=== PATIENT | female | born 1935 | race African-American/Black ===

== ENCOUNTER 2017-07-04 13:53 | Emergency (ER) | payer OTHER ==
[2017-07-04] MEDS ORDERED: SODIUM CHLORIDE 0.9% 1000 ML INFUS.BAG IV ONE (14:51)
--- NOTE | 2017-07-04 14:53 | PDOC ---
History of Present Illness <Gilberto Valle - Last Filed: 07/04/17 17:51> - General History Source: Patient Exam Limitations: No Limitations - History of Present Illness Initial Comments: 07/04/17 15:47 The patient is an 82 year old female with past medical history of SBO, diabetes , hypertension, TIA, GERD and dementia who presents to the ED s/p syncope today. As per daughter, the patient was sitting in her chair when she stated she felt unwell and proceeded to faint. Her daughter caught her before she could hit the floor. After waking up, the patient complains of dizziness and nausea. She proceeded to have a finger stick which was noted to be 299. In the ED, she additionally complains of 6/10 epigastric soreness that she reports taking mylanta for. She denies any fevers or chills. <Va Garcia - Last Filed: 07/04/17 17:55> - General Stated Complaint: high blood glucose Time Seen by Provider: 07/04/17 14:49 Past History - Past Medical History Anemia: No Asthma: No Cancer: No Cardiac Disorders: No CVA: No COPD: No CHF: No Dementia: No Diabetes: Yes GI Disorders: Yes Disorders: No HTN: Yes Hypercholesterolemia: No Liver Disease: No Seizures: No Thyroid Disease: No - Surgical History Abdominal Surgery: Yes - Immunization History Immunization Up to Date: Yes - Suicide/Smoking/Psychosocial Hx Smoking Status: No Smoking History: Never smoked Have you smoked in the past 12 months: No Number of Cigarettes Smoked Daily: 0 Hx Alcohol Use: No Drug/Substance Use Hx: No Substance Use Type: None Hx Substance Use Treatment: No <Gilberto Valle - Last Filed: 07/04/17 17:51> <Va Garcia - Last Filed: 07/04/17 17:55> - Past Medical History Allergies/Adverse Reactions: Allergies Allergy/AdvReac Type Severity Reaction Status Date / Time No Known Allergies Allergy Verified 07/04/17 14:54 Home Medications: Ambulatory Orders Acetaminophen [Tylenol .Extra-Strength -] 500 mg PO Q4H 10/24/13 Amlodipine Besylate [Norvasc -] 10 mg PO DAILY 10/24/13 Aspirin/Dipyridamole [Aggrenox -] 1 combo PO BID 10/24/13 Atorvastatin Ca [Lipitor] 10 mg PO HS 10/24/13 Esomeprazole Mag Trihydrate [Nexium] 40 mg PO DAILY 10/24/13 Glipizide [Glipizide Xl] 10 mg PO DAILY 10/24/13 Hydrochlorothiazide [Hctz -] 25 mg PO DAILY 10/24/13 Lipase/Protease/Amylase [Marcial Kitchen 24,000 Units Capsule] 1 each PO DAILY Lisinopril [Prinivil] 20 mg PO DAILY 10/24/13 Metoclopramide HCl 5 mg PO DAILY 10/24/13 Metoprolol Succinate 100 mg PO DAILY 10/24/13 Potassium Chloride 20 meq PO DAILY 10/24/13 Sitagliptin Phosphate [Januvia] 100 mg PO DAILY 10/24/13 Lactulose (Oral Use) [Cephulac -] 20 gm PO TID #1 bottle 10/27/13 Sennosides/Docusate Sodium [Docusate Sodium-Sennosides Tab] 1 each PO BID #60 tablet 10/27/13 Review of Systems - Review of Systems Able to Perform ROS?: Yes Comments:: 07/04/17 15:47 GENERAL/CONSTITUTIONAL: No fever or chills. No weakness. HEAD, EYES, EARS, NOSE AND THROAT: No change in vision. No ear pain or discharge. No sore throat. CARDIOVASCULAR: No chest pain or shortness of breath. RESPIRATORY: No cough, wheezing, or hemoptysis. GASTROINTESTINAL: Present: nausea No vomiting, diarrhea or constipation. GENITOURINARY: No dysuria, frequency, or change in urination. MUSCULOSKELETAL: No joint or muscle swelling or pain. No neck or back pain. SKIN: No rash NEUROLOGIC: Present: dizziness, syncope No headache, vertigo, or change in strength/sensation. ENDOCRINE: No increased thirst. No abnormal weight change. HEMATOLOGIC/LYMPHATIC: No anemia, easy bleeding, or history of blood clots. ALLERGIC/IMMUNOLOGIC: No hives or skin allergy. All Other Systems: Reviewed and Negative <Va Garcia - Last Filed: 07/04/17 17:55> *Physical Exam - Vital Signs Last Vital Signs Temp Pulse Resp BP Pulse Ox 72 20 114/62 95 07/04/17 14:49 07/04/17 14:49 07/04/17 14:49 07/04/17 14:49 - Physical Exam Comments: 07/04/17 15:49 GENERAL: Awake, alert, and fully oriented, in no acute distress HEAD: No signs of trauma EYES: PERRLA, EOMI, sclera anicteric, conjunctiva clear ENT: Auricles normal inspection, hearing grossly normal, nares patent, oropharynx clear without exudates. Moist mucosa NECK: Normal ROM, supple, no lymphadenopathy, JVD, or masses LUNGS: Breath sounds equal, clear to auscultation bilaterally. No wheezes, and no crackles HEART: Regular rate and rhythm, normal S1 and S2, no murmurs, rubs or gallops ABDOMEN: Soft, nontender, normoactive bowel sounds. No guarding, no rebound. No masses EXTREMITIES: Normal range of motion, no edema. No clubbing or cyanosis. No cords, erythema, or tenderness NEUROLOGICAL: Cranial nerves II through XII grossly intact. Normal speech, normal gait SKIN: Warm, Dry, normal turgor, no rashes or lesions noted. <Va Garcia - Last Filed: 07/04/17 17:55> Heart Score/ECG Review - ECG Intrepretation Comment:: 07/04/17 16:01 ECG obtained at 15:49 Normal sinus at 73 bpm Cannot rule out anterior infarct <Va Garcia - Last Filed: 07/04/17 17:55> ED Treatment Course - RADIOLOGY Radiology Studies Ordered: Category Date Time Status CHEST X-RAY PORTABLE* [RAD] Stat Radiology 07/04/17 14:51 Ordered <Gilberto Valle - Last Filed: 07/04/17 17:51> - LABORATORY CBC & Chemistry Diagram: 07/04/17 17:45 07/04/17 17:45 - RADIOLOGY Radiograph Interpretation: 07/04/17 16:18 Chest X-ray as reviewed by Dr. Zuniga reports no significant interval change and some cardiomegaly. 07/04/17 17:[address] as reviewed by Dr. Domínguez reports no acute intracranial hemmorhage, mass effect, or hydrocephalus. No compelling evidence of acute transcortical infarction at this time. Generalized age related volume loss and moderate microvascular ischemic changes <Va Garcia - Last Filed: 07/04/17 17:55> *DC/Admit/Observation/Transfer <Gilberto Valle - Last Filed: 07/04/17 17:51> - Attestations Scribe Attestion: 07/04/17 15:49 Documentation prepared by Va Garcia, acting as medical equipment repair technician for Gilberto Valle DO. <Va Garcia - Last Filed: 07/04/17 17:55> Diagnosis at time of Disposition: Vasovagal syncope, Epigastric pain - Patient Instructions Additional Instructions: I, Dr. Gilberto Valle, attest that this document has been prepared under my direction and personally reviewed by me in its entirety. I further attest, that it accurately reflects all work, treatment, procedures and medical decision -making performed by me.
[2017-07-04 15:01] VITALS: BP 114/62; PULSE 72; BMI 31.9
[2017-07-04] MEDS ORDERED: ONDANSETRON 4 MG/2 ML VIAL IVPUSH ONE (15:37)
[2017-07-04] MEDS ORDERED: ONDANSETRON 4 MG/2 ML VIAL ONE (16:49)
[2017-07-04 17:55] LABS: BASO # 0.1 #; BASO % 1.3 % (0-2.0); EOS # 0.2 #; EOS % 2.3 % (0-4.5); LYMPH # 3.6; MCH 30.6 pg (25.7-33.7); MCHC 32.4 g/dl (32.0-36.0); MEAN CELL VOLUME 94.5 fl (80-96); MONO # 1.2 #; NEUT # 4.5 #; NEUT % 46.6 % (42.8-82.8); PLATELET COUNT 236 K/MM3 (134-434); RDW 15.6 % (11.6-15.6); WHITE BLOOD COUNT 9.6 K/mm3 (4.0-10.0)
[2017-07-04 18:01] LABS: VENOUS PH 7.33 (7.32-7.42)
[2017-07-04 18:02] LABS: VENOUS BLOOD GAS HCO3 28.3 meq/L (19-25)
[2017-07-04 18:24] LABS: INR 1.08 (0.82-1.09); PROTHROMBIN TIME (PATIENT) 12.2 SEC (9.98-11.88)
[2017-07-04 18:27] LABS: ALBUMIN 3.7 g/dl (3.4-5.0); ANION GAP 10 (8-16); CALCIUM 9.5 mg/dL (8.5-10.1); CO2 28 mmol/L (21-32); GLUCOSE,RANDOM 145 mg/dL (74-106); SGOT/AST 15 U/L (15-37)
[2017-07-04 18:33] LABS: ALK PHOS 90 U/L (45-117); BILIRUBIN,TOTAL 0.4 mg/dL (0.2-1.0); CPK 56 IU/L (26-192); SGPT/ALT 19 U/L (12-78); TOT PROT 8.1 g/dl (6.4-8.2); TROPONIN I < 0.02 ng/ml (0.00-0.05)
--- NOTE | 2017-07-04 22:20 | PDOC ---
*Physical Exam - Vital Signs Last Vital Signs Temp Pulse Resp BP Pulse Ox 72 20 114/62 95 07/04/17 14:49 07/04/17 14:49 07/04/17 14:49 07/04/17 14:49 ED Treatment Course - LABORATORY CBC & Chemistry Diagram: 07/04/17 17:45 07/04/17 17:45 - ADDITIONAL ORDERS Additional order review: Laboratory Results 07/04/17 07/04/17 07/04/17 17:45 17:45 17:45 PT with INR INR VBG pH 7.33 POC VBG pCO2 55.0 H POC VBG pO2 28.6 Mixed VBG HCO3 28.3 H Sodium 140 Potassium 3.9 Chloride 102 Carbon Dioxide 28 Anion Gap 10 BUN 13 D Creatinine 1.0 D Creat Clearance w eGFR 52.95 Random Glucose 145 H Lactic Acid 1.7 Calcium 9.5 Total Bilirubin 0.4 D AST 15 D ALT 19 Alkaline Phosphatase 90 D Creatine Kinase 56 Troponin I < 0.02 B-Natriuretic Peptide 108.19 Total Protein 8.1 D Albumin 3.7 Lipase 76 07/04/17 17:45 PT with INR 12.20 H INR 1.08 VBG pH POC VBG pCO2 POC VBG pO2 Mixed VBG HCO3 Sodium Potassium Chloride Carbon Dioxide Anion Gap BUN Creatinine Creat Clearance w eGFR Random Glucose Lactic Acid Calcium Total Bilirubin AST ALT Alkaline Phosphatase Creatine Kinase Troponin I B-Natriuretic Peptide Total Protein Albumin Lipase 07/04/17 17:45 RBC 4.42 D MCV 94.5 MCHC 32.4 RDW 15.6 MPV 10.0 Neutrophils % 46.6 Lymphocytes % 37.3 D Monocytes % 12.5 H Eosinophils % 2.3 Basophils % 1.3 - Medications Given in the ED: ED Medications Discontinued Medications Generic Name Dose Route Start Last Admin Trade Name Freq PRN Reason Stop Dose Admin Ondansetron HCl 4 mg 07/04/17 15:37 07/04/17 17:48 Zofran Injection IVPUSH 07/04/17 15:38 4 mg ONCE ONE Administration Sodium Chloride 500 ml 07/04/17 14:51 07/04/17 18:33 Normal Saline - IV 07/04/17 14:52 500 ml ONCE ONE Administration *DC/Admit/Observation/Transfer Diagnosis at time of Disposition: Vasovagal syncope, Epigastric pain - Discharge Dispostion Disposition: HOME Condition at time of disposition: Stable Admit: No - Referrals - Patient Instructions Printed Discharge Instructions: DI for Syncope in Adults (Fainting) Additional Instructions: I, Dr. Gilberto Valle, attest that this document has been prepared under my direction and personally reviewed by me in its entirety. I further attest, that it accurately reflects all work, treatment, procedures and medical decision -making performed by me. - Post Discharge Activity
[2017-07-04 22:26] LABS: URINE APPEARANCE SLCLOUDY; URINE BILIRUBIN NEGATIVE (NEGATIVE); URINE BLOOD NEGATIVE (NEGATIVE); URINE COLOR STRAW; URINE GLUCOSE (UA) 3+ (NEGATIVE); URINE KETONE NEGATIVE (NEGATIVE); URINE NITRITE NEGATIVE (NEGATIVE); URINE PROTEIN NEGATIVE (NEGATIVE); URINE UROBILINOGEN NEGATIVE mg/dL (0.2-1.0)
[2017-07-04 22:48] LABS: URINE LEUK ESTERASE 2+ (NEGATIVE)
[2017-07-04 23:10] LABS: URINE RBC <1 /hpf (0-3); URINE WBC 5 /hpf (3-5)
[2017-07-04 23:16] LABS: ACETONE SERUM NEGATIVE (NEGATIVE)
[2017-07-04 23:40] LABS: OSMOLALITY,SERUM 305 mosm/kg (278-305)
[2017-07-05 12:59] LABS: URINE LEUK ESTERASE 1+ (NEGATIVE)
--- NOTE | 2017-07-05 13:07 | EKG ---
Test Reason : Blood Pressure : / mmHG Vent. Rate : 073 BPM Atrial Rate : 073 BPM P-R Int : 160 ms QRS Dur : 070 ms QT Int : 394 ms P-R-T Axes : 007 -10 000 degrees QTc Int : 434 ms NORMAL SINUS RHYTHM CANNOT RULE OUT ANTERIOR INFARCT , AGE UNDETERMINED ABNORMAL ECG WHEN COMPARED WITH ECG OF 26-OCT-2013 10:17, NO SIGNIFICANT CHANGE WAS FOUND Confirmed by AMRIT SAVAGE MD ([id number]) on 07/05/2017 1:06:50 PM Referred By: Confirmed By:AMRIT SAVAGE MD
== END 2017-07-04 23:18 | disposition home or self-care (01) ==
LOC: JER 13:53
PROC: 3E033GC Introduction of Other Therapeutic Substance into Peripheral Vein, Percutaneous Approach (ICD-10-PCS; principal; 2017-07-04)
DX: R55 Syncope and collapse (principal); I10 Essential (primary) hypertension; E11.9 Type 2 diabetes mellitus without complications; Z79.84 Long term (current) use of oral hypoglycemic drugs; Z86.73 Personal history of transient ischemic attack (TIA), and cerebral infarction without residual deficits; Z87.19 Personal history of other diseases of the digestive system
CPT/HCPCS: 36415; 70450-TC; 71010-TC; 76705-TC; 80053; 81003; 81015; 82009; 82550; 82803; 83605; 83690; 83880; 83930; 84484; 85025; 85610; 87040; 87077; 87086; 93005; 93010; 99283-25